=== PATIENT | male | born 1995 | race Caucasian/White ===

== ENCOUNTER 2021-01-02 19:00 | Emergency (ER) | payer BC ==
[~2021-01-02] VITALS: Ht 162.6 cm; Wt 42.9 kg
[2021-01-02 19:07] VITALS: BP 106/78
--- NOTE | 2021-01-02 19:52 | NUR ---
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
--- NOTE | 2021-01-02 20:03 | NUR ---
CC OF GLF, PT STATES HES MISTEPPED WHILE STEPPING ON A BUCKET AT HOME AND FELL ON HIS LEFT SIDE AND LANDED WITH THE LEFT SIDE OF HIS FACE HITTING THE GROUND AND HE IS CONCERED HIS NOSE IS BROKEN. PT DENIES LOC OR PAIN ELSEWHERE. STATES HIS NOSE HAS BEEN LIGHTLY BLEEDING SINCE IT HAPPENED "BUT NOT GUSHING BLOOD". PTS NOSE IS OFF CENTERED, APPEARS TO BE MORE RIGHT CENTERED. PT AND GF BOTH AGREE IT DOES LOOK DIFFERENT. PT ALSO STATES THE LEFT SIDE OF HIS NOSE "LOOKS FLATTER THEN THE RIGHT". PTS VOICE SOUNDS "STUFFY". GF AT BEDSIDE.
--- NOTE | 2021-01-02 20:40 | NUR ---
refusing x rays, wants to follow up with md who did his last few nasal surgeries
== END 2021-01-02 20:56 | disposition home or self-care (01) ==
LOC: ED 20:50
DX: S00.33XA Contusion of nose, initial encounter (principal); R51.9 Headache, unspecified; W01.0XXA Fall on same level from slipping, tripping and stumbling without subsequent striking against object, initial encounter; Y93.89 Activity, other specified; Y92.89 Other specified places as the place of occurrence of the external cause; Y99.8 Other external cause status
CPT/HCPCS: 99281